=== PATIENT | female | born 1965 ===

== ENCOUNTER 2017-09-17 07:14 | Day surgery (SDC) | payer BC ==
[~2017-09-17 07:14] MED LIST: Buffered Lidocaine 0.9% SYRIN* 5 ML/SYR SYRINGE INTRADERM ONE
[2017-09-17] MEDS ORDERED: Buffered Lidocaine 0.9% SYRIN* 5 ML/SYR SYRINGE ONE (07:22)
[2017-09-17] MEDS ORDERED: ceFAZolin 2 GM PREMIX (*) 2 GM/50 ML BAG IVPB ONE (07:22)
[2017-09-17] MEDS ORDERED: EPINEPHRINE 1 MG/ML 1 ML VIAL ONE (08:06)
[2017-09-17] MEDS ORDERED: Bupivacaine 0.25% SDV* 30 ML ONE ×2 (08:16→11:38)
[2017-09-17] MEDS ORDERED: fentaNYL* 50 MCG/ML 2 ML VIAL (100 MCG VIAL) ONE ×2 (08:18→11:14)
[2017-09-17] MEDS ORDERED: Propofol* 10 MG/ML 20 ML BTL IV PUSH ONE (08:18)
[2017-09-17] MEDS ORDERED: Scopolamine 1.5 mg* PATCH ONE (08:18)
[2017-09-17] MEDS ORDERED: Midazolam* 1 MG/ML 2 ML VIAL (2 MG) ONE (08:19)
[2017-09-17] MEDS ORDERED: Atracurium* 10 MG/ML 10 ML VIAL ONE (08:39)
[2017-09-17] MEDS ORDERED: Dexamethasone IV* 4 MG/ML 1 ML (4 MG) ONE (09:07)
[2017-09-17] MEDS ORDERED: DiMENhydriNATE IV* 50 MG/ML VIAL IV PUSH PRN (10:15)
[2017-09-17] MEDS ORDERED: HYDROmorphone INJ* 1 MG/ML CARPUJECT SYRINGE IV PRN (10:15)
[2017-09-17] MEDS ORDERED: fentaNYL* 50 MCG/ML 2 ML VIAL (100 MCG VIAL) IV PRN (10:15)
[2017-09-17] MEDS ORDERED: Ondansetron INJ* 2 MG/ML VIAL IV PRN (10:15)
[2017-09-17] MEDS ORDERED: oxyCODONE/Acetamin 5/325 MG* TAB PO PRN (10:15)
[2017-09-17] MEDS ORDERED: Ketorolac INJ* 30 MG/ML 1 ML VIAL ONE (10:50)
[2017-09-17] MEDS ORDERED: Ondansetron INJ* 2 MG/ML VIAL ONE (10:50)
[2017-09-17 14:09] VITALS: BP 122/75
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
== END 2017-09-17 14:20 | disposition home or self-care (01) ==
LOC: OR 07:14
PROVIDERS: ATTEND Orthopaedic Surgery
DX: S43.431D Superior glenoid labrum lesion of right shoulder, subsequent encounter (principal); M25.511 Pain in right shoulder; M75.21 Bicipital tendinitis, right shoulder; M75.111 Incomplete rotator cuff tear or rupture of right shoulder, not specified as traumatic; M75.51 Bursitis of right shoulder; Z85.3 Personal history of malignant neoplasm of breast; K21.9 Gastro-esophageal reflux disease without esophagitis; F41.9 Anxiety disorder, unspecified; X50.9XXD Other and unspecified overexertion or strenuous movements or postures, subsequent encounter; Y92.9 Unspecified place or not applicable
CPT/HCPCS: A9270-GY; C1776; J0690; J1100; J1885; J2250; J2405; J2704; J3010